=== PATIENT | male | born 1945 | race Caucasian/White ===

== ENCOUNTER 2024-06-16 23:51 | Emergency (ER) | payer OTHER, SELFPAY ==
[2024-06-16 23:56] VITALS: BP 144/73
[2024-06-17 00:20] VITALS: BMI 31.0
--- NOTE | 2024-06-17 00:35 | ED.GENMED ---
History of Present Illness
General
Chief Complaint: Abdominal Symptoms
Source: patient
Exam Limitations: none
Time Seen by Provider: 06/17/24 00:05
Nursing documentation reviewed up to this point in time: agreed with
History of Present Illness
History of Present Illness:
Patient is a 79-year male with prior cholecystectomy, history of hypertension reflux presents to the ER for evaluation of abdominal pain. Patient reports off-and-on for the past several days he has noticed some vague abdominal pain and also some
bilateral back pain. Last night he felt pain was more in the right upper quadrant however it resolved but then started again today. He notices this pain more after eating. He reports that he feels in the right upper quadrant he feels it around
his entire abdomen. He denies any nausea vomiting. Denies any urinary frequency urgency or dysuria. Denies any hematuria. Denies any constipation.
Review of Systems
Review of Systems
Allergies reviewed?: Yes
All Other Systems: ROS reviewed and negative except as documented in HPI and ROS
Constitutional: Reports no symptoms; Denies fever, fatigue or chills
Respiratory: Reports no symptoms
Cardiac: Reports no symptoms
ABD/GI: Reports abdominal pain; Denies nausea, vomiting or diarrhea
: Reports no symptoms
Musculoskeletal: Reports no symptoms
Skin: Reports no symptoms
Neurological: Reports no symptoms
Psychiatric: Reports no symptoms
Phy Exam
General Physical Exam
General Presentation: no apparent distress
General age: appears stated age
General Skin: warm and dry
General Habitus: elderly
General Mental: alert
General Hydration: appears well hydrated
Gastrointestinal Exam
Gastrointestinal Exam: soft and other (Tender in the right upper quadrant and left side of the abdomen General Nonspecific tenderness throughout the entire abdomen)
Neurological Exam
Neurological Exam: alert and oriented x3
Musculoskeletal Exam
Musculoskeletal Exam: full ROM
Skin Exam
Skin Exam: normal color and warm/dry
Psychiatric Exam
Psychiatric Exam: normal mood/affect
Sepsis
Sepsis Screening
Sepsis Assessment: Sepsis Ruled Out
Sepsis Screen
Sepsis Screen: Sepsis Ruled Out
Date: 06/17/24
Time: 03:01
Course
Orders/Labs/Results
Orders:
Orders
06/17/24 00:02
IV Insert/Care/Rem.- Treatment PRN
Straight cath- Treatment ONCE
06/17/24 00:37
CT Abd/pelvis W Iv Cont Urgent
Comment:
Reason For Exam: ruq/generalized abd pain
06/17/24 00:38
Complete Blood Count/With Diff Urgent
Comprehensive Metabolic Panel Urgent
Lipase Urgent
Urinalysis Reflex To Culture Urgent
Date Specimen was Collected: 06/17/24
Time Specimen was Collected: 00:02
0.9% Sodium Chloride 1000 ml [Nss] 1,000 ml IV BOLUS
06/17/24 01:37
HYDROmorphone [Dilaudid] 0.5 mg IV NOW STA
Abnormal Lab Results
06/17/24
00:38
Hgb 12.5 L g/dL
(13.0-18.0)
Hct 38.7 L %
(39.0-52.0)
MCH 25.9 L pg
(27.0-31.0)
MCHC 32.3 L g/dL
(33.0-37.0)
MPV 10.7 H fL
(7.4-10.4)
Absolute Monos (auto) 1.1 H 10^3/uL
(0.1-0.6)
Lymphocytes % 17.1 L %
(20.5-51.1)
Monocytes % 11.6 H %
(1.7-9.3)
BUN 24 H mg/dl
(9-20)
Glucose 104 H mg/dl
(70-99)
Alkaline Phosphatase 150 H U/L
(38-126)
06/17/24 00:38
06/17/24 00:38
Vital Signs
Initial and Last Documented VS:
Initial Vital Signs
Temp Pulse Resp BP Pulse Ox
99.7 F 70 20 144/73 97
06/16/24 23:56 06/16/24 23:56 06/16/24 23:56 06/16/24 23:56 06/16/24 23:56
Last Documented Vital Signs
Temp Pulse Resp BP Pulse Ox
99.7 F 69 16 118/62 94
06/16/24 23:56 06/17/24 02:00 06/17/24 02:00 06/17/24 02:00 06/17/24 02:00
MDM/Problems Addressed
Differential Diagnosis Includes:
Not limited to stone in biliary duct, less likely pancreatitis diverticulitis less likely renal colic
MDM/Problems Addressed:
Patient is a 79-year male who presented with abdominal pain over the past several days very vague in nature mildly tender in the right and left abdomen. He does feel pain in the back as well. He denies any shortness of breath. Unfortunately CAT
scan was done and does show multiple hepatic masses compatible with metastatic disease large pancreatic mass at the tail of the pancreas with left adrenal mass and possible right renal lesion. Patient's labs are unremarkable with exception of
elevated alk phosphatase, normal lipase normal LFTs. Patient wishes to go home and follow-up as an outpatient. Pt is from [place] and visiting here and will be traveling back to [place] on Thursday. He will follow-up with oncologist in [place].
His brother is currently using an oncologist that he wishes to see.
Discussed with patient and that they may obtain full CAT scan report tomorrow from medical records. labs and ct disc given to pt.
*Radiology
Radiology exam reviewed: radiology read reviewed
*Critical Care Note
Total Time (30-74mins, 75-104mins- exclusive of procedures): Not Applicable
ED Attending Note
-
Portions of this chart may have been created with voice recognition software.� Occasional wrong word or��sound alike� substitutions may have occurred due to the inherent limitations of voice recognition software.
Discharge Plan
Departure
Patient Disposition: Home (Routine Discharge)
Date of Disposition: 06/17/24
Time of Disposition: 02:59
Patient with high blood pressure during this ER visit?: Yes
Condition: Fair
Covid-19: Not Applicable
Discharge Problem:
Metastatic cancer
Referrals:
PRIVATE,PHYSICIAN [Family Provider] -
Activity Restrictions/Additional Instructions:
As discussed your CAT scan showed multiple masses in the liver along with a large pancreatic mass left adrenal mass and possible right kidney mass. You were given a copy of your blood work and your CAT scan disc however please call medical records
and get official copy of the CAT scan report tomorrow. Follow-up with oncologist in [place]. Return if any worsening of symptoms
Interventions
Interventions:
*Risk Screen - Suicide Last Done: 06/16/24 23:56
*General Assessment Last Done: 06/16/24 23:56
*Neglect/Abuse Screening Last Done: 06/16/24 23:56
ED- Fall Risk Assessment Last Done: 06/16/24 23:56
*ED COVID-19 Vaccine History Last Done: 06/16/24 23:56
FM-Daeovn-Hnycnnbisr Assessment Last Done: 06/17/24 00:21
Discharge Date and Time
Print Language: [id number]
[2024-06-17 00:39] VITALS: BP 127/61
[2024-06-17] MEDS: NSS 1000 IV (00:41)
[2024-06-17 00:47] LABS: % Basophils 0.6 % (0-2); % Eosinophils 3.6 % (0-6); % Immature Granulocytes 0.3 % (0-0.5); % Lymphocytes 17.1 % (20.5-51.1); % Monocytes 11.6 % (1.7-9.3); % Neutrophils 66.8 % (42.2-75.2); Absolute Basophils 0.1 10^3/uL (0-0.2); Absolute Eosinophils 0.4 10^3/uL (0-0.7); Absolute Lymphocytes 1.7 10^3/uL (1.2-3.4); Absolute Monocytes 1.1 10^3/uL (0.1-0.6); Absolute Neutrophils 6.4 10^3/uL (1.4-6.5); Hematocrit 38.7 % (39.0-52.0); Hemoglobin 12.5 g/dL (13.0-18.0); Mean Corp Hgb Conc. 32.3 g/dL (33.0-37.0); Mean Corpuscular Hgb 25.9 pg (27.0-31.0); Mean Corpuscular Volume 80.3 fL (80.0-94.0); Mean Platelet Volume 10.7 fL (7.4-10.4); Nucleated Red Blood Cells % 0 % (-); Platelet Count 203 10^3/uL (130-400); Red Blood Cell Count 4.82 10^6/uL (4.70-6.10); Red Cell Dist. Width 13.5 % (11.5-14.5); Urine Albumin Negative (Neg - Trace); Urine Bilirubin Negative (Negative); Urine Character Clear (Clear); Urine Color Yellow; Urine Glucose Negative (Negative); Urine Ketone Negative (Negative); Urine Leukocyte Negative (Negative); Urine Nitrite Negative (Negative); Urine Occult Blood Negative (Negative); Urine Urobilinogen Negative (Neg - 1+); White Blood Cell Count 9.6 10^3/uL (4.8-10.8)
[2024-06-17 01:00] VITALS: BP 129/71
[2024-06-17 01:29] LABS: ALT (SGPT) 44 U/L (0-50); AST (SGOT) 59 U/L (17-59); Albumin 4.1 g/dl (3.5-5.0); Alkaline Phosphatase 150 U/L (38-126); Blood Urea Nitrogen 24 mg/dl (9-20); Calcium 9.7 mg/dl (8.4-10.2); Carbon Dioxide 28 mmol/L (22-30); Chloride 103 mmol/L (98-107); Estimated Creatinine Clearance 90 ml/min; Glucose 104 mg/dl (70-99); Lipase 76 U/L (23-300); Potassium 4.6 mmol/L (3.5-5.1); Sodium 142 mmol/L (135-145); Total Bilirubin 0.6 mg/dl (0.2-1.3); Total Protein 6.6 g/dl (6.3-8.2); eGFR > 60.00
[2024-06-17 02:00] VITALS: BP 118/62
[2024-06-17 03:00] VITALS: BP 141/68
== END 2024-06-17 03:51 | disposition home or self-care (01) ==
LOC: EMR 23:51
PROVIDERS: EMERGENCY PHYSICIAN Emergency Medicine
DX: R10.11 Right upper quadrant pain (principal); I10 Essential (primary) hypertension; K21.9 Gastro-esophageal reflux disease without esophagitis; Z90.49 Acquired absence of other specified parts of digestive tract
CPT/HCPCS: 99284; 96374; 96361; 74177; 80053; 81003; 83690; 85025; Q9967